=== PATIENT | male | born 1995 | race African-American/Black ===

== ENCOUNTER 2019-09-06 12:39 | Inpatient (IN) ==
[2019-09-06 13:55] LABS: Basophils # 0.1 10*3/uL (0.0-0.2); Basophils % 0.7 % (0.0-0.8); Eosinophils # 0.1 10*3/uL (0.0-0.87); Eosinophils % 0.8 % (0.00-10.9); Hematocrit 27.4 VOL% (42.0-52.0); Immature Granulocytes % 0.5 %; Immature Granulocytes Absolute 0.04 #; Lymphocytes # 1.3 10*3/uL (1.4-4.0); Lymphocytes % 14.8 % (21.2-54.2); Mean Corpuscular HGB Conc 29.2 GM/DL (32-36); Mean Corpuscular Volume 80.1 FL (87-102); Mean Platelet Volume 8.7 FL (9.6-12.0); Monocytes % 7.1 % (1.7-12.7); NRBC # 0.03 10*3/uL; Neutrophils % 76.1 % (38.7-73.9); Platelet Count 265 T/CUMM (130-400); Red Blood Count 3.42 MC/CUMM (3.8-5.5); White Blood Count 8.7 T/CUMM (4-12)
[2019-09-06 14:22] LABS: Albumin 3.3 G/DL (3.4-5.0); Bilirubin,Total 1.3 MG/DL (0.2-1.0); Calcium 9.2 MG/DL (8.5-10.1); Osmolality,Calculated 262.1 MOS/KG (273-304); Total Protein 8.2 G/DL (6.4-8.3)
[2019-09-06] MEDS ORDERED: AZITHROMYCIN INJ 500 MG in SODIUM CHLORIDE 0.9% 250 ML IV STA (14:42)
[2019-09-06] MEDS ORDERED: LORazepam 1 MG TABLET PO STA (14:43)
[2019-09-06] MEDS ORDERED: cefTRIAXone 1,000 MG in SODIUM CHLORIDE 0.9% 100 ML IV STA (14:43)
[2019-09-06] MEDS ORDERED: ONDANSETRON 4 MG/2 ML VIAL ONE (15:36)
[2019-09-06] MEDS ORDERED: ONDANSETRON 4 MG/2 ML VIAL IV ONE (17:36)
[2019-09-06] MEDS: DILTIAZEM 30 MG TABLET PO SCH (20:35)
[2019-09-06] MEDS: ENOXAPARIN 40 MG/0.4 ML SYRINGE SUBCUT SCH (20:36)
[2019-09-06] MEDS: BUMETANIDE 1 MG TABLET PO SCH (20:36)
[2019-09-06] MEDS: POTASSIUM CHLORIDE 20 MEQ TABLET PO SCH (20:36)
[2019-09-06] MEDS ORDERED: ISOSORBIDE DINITRATE 20 MG TABLET PO SCH (21:00)
[2019-09-07] MEDS: DILTIAZEM 30 MG TABLET PO SCH ×2 (01:27→06:10)
[2019-09-07 05:38] LABS: Basophils # 0.1 10*3/uL (0.0-0.2); Basophils % 0.6 % (0.0-0.8); Eosinophils # 0.1 10*3/uL (0.0-0.87); Eosinophils % 1.7 % (0.00-10.9); Hematocrit 26.7 VOL% (42.0-52.0); Hemoglobin 7.9 GM/DL (14.0-18.0); Immature Granulocytes % 0.5 %; Immature Granulocytes Absolute 0.04 #; Lymphocytes # 1.2 10*3/uL (1.4-4.0); Lymphocytes % 14.6 % (21.2-54.2); Mean Corpuscular HGB Conc 29.6 GM/DL (32-36); Mean Corpuscular Volume 78.1 FL (87-102); Mean Platelet Volume 9.4 FL (9.6-12.0); Monocytes % 9.4 % (1.7-12.7); NRBC # 0.02 10*3/uL; Neutrophils % 73.2 % (38.7-73.9); Platelet Count 267 T/CUMM (130-400); Red Blood Count 3.42 MC/CUMM (3.8-5.5); White Blood Count 8.2 T/CUMM (4-12)
[2019-09-07 06:17] LABS: Calcium 9.8 MG/DL (8.5-10.1); Osmolality,Calculated 263.9 MOS/KG (273-304)
[2019-09-07 06:25] LABS: % Iron Saturation 5.2 % (18-50); Ferritin 46.6 ng/ml (26-388)
[2019-09-07] MEDS ORDERED: cefTRIAXone 1,000 MG in SYRINGE 1 EACH IV SCH (09:00)
[2019-09-07] MEDS ORDERED: AZITHROMYCIN INJ 250 MG in SODIUM CHLORIDE 0.9% 250 ML IV SCH (09:00)
[2019-09-07] MEDS: SPIRONOLACTONE 25 MG TABLET PO SCH (09:36)
[2019-09-07] MEDS: BUMETANIDE 1 MG TABLET PO SCH ×2 (09:36→20:40)
[2019-09-07] MEDS: POTASSIUM CHLORIDE 20 MEQ TABLET PO SCH ×2 (09:37→20:40)
[2019-09-07] MEDS: DIGOXIN 0.125 MG TABLET PO SCH (09:37)
[2019-09-07] MEDS: ONDANSETRON 4 MG/2 ML VIAL IV PRN ×2 (11:57→17:45)
[2019-09-07] MEDS: carvediloL 6.25 MG TABLET PO SCH ×2 (13:51→20:40)
[2019-09-07] MEDS: PIPERACILLIN/TAZOBACTAM 3,375 MG in SODIUM CHLORIDE 0.9% 100 ML IV SCH ×2 (13:52→20:39)
[2019-09-07] MEDS ORDERED: MORPHINE 4 MG/1 ML VIAL IV PRN (19:59)
[2019-09-07] MEDS: ENOXAPARIN 40 MG/0.4 ML SYRINGE SUBCUT SCH (20:40)
[2019-09-07] MEDS: FERROUS SULFATE 325 MG TABLET PO SCH (20:40)
[2019-09-08 05:47] LABS: Basophils % 0.6 % (0.0-0.8); Eosinophils # 0.2 10*3/uL (0.0-0.87); Eosinophils % 2.5 % (0.00-10.9); Hematocrit 26.3 VOL% (42.0-52.0); Hemoglobin 7.9 GM/DL (14.0-18.0); Immature Granulocytes % 0.6 %; Immature Granulocytes Absolute 0.04 #; Lymphocytes # 1.1 10*3/uL (1.4-4.0); Lymphocytes % 16.1 % (21.2-54.2); Mean Corpuscular Volume 78.3 FL (87-102); Mean Platelet Volume 9.5 FL (9.6-12.0); Monocytes % 8.1 % (1.7-12.7); NRBC # 0.07 10*3/uL; Neutrophils % 72.1 % (38.7-73.9); Platelet Count 265 T/CUMM (130-400); Red Blood Count 3.36 MC/CUMM (3.8-5.5); White Blood Count 7.1 T/CUMM (4-12)
[2019-09-08] MEDS: PIPERACILLIN/TAZOBACTAM 3,375 MG in SODIUM CHLORIDE 0.9% 100 ML IV SCH ×3 (06:00→21:54)
[2019-09-08 06:09] LABS: Calcium 9.4 MG/DL (8.5-10.1); Osmolality,Calculated 267.9 MOS/KG (273-304)
[2019-09-08] MEDS ORDERED: ALUM/MAG/SIMETH/LIDO VISC 1:1 30 ML BOTTLE PO ONE (07:48)
[2019-09-08] MEDS: BUMETANIDE 1 MG TABLET PO SCH ×2 (08:58→21:54)
[2019-09-08] MEDS: FERROUS SULFATE 325 MG TABLET PO SCH ×2 (08:58→21:54)
[2019-09-08] MEDS: carvediloL 6.25 MG TABLET PO SCH ×2 (08:58→21:54)
[2019-09-08] MEDS: DIGOXIN 0.125 MG TABLET PO SCH (08:58)
[2019-09-08] MEDS: SPIRONOLACTONE 25 MG TABLET PO SCH (08:58)
[2019-09-08] MEDS: POTASSIUM CHLORIDE 20 MEQ TABLET PO SCH ×2 (08:58→21:55)
[2019-09-08] MEDS: metOLazone 2.5 MG TABLET PO SCH (08:58)
[2019-09-08 10:47] LABS: Albumin 3.2 G/DL (3.4-5.0); Bilirubin,Direct 0.69 MG/DL (0.0-0.20); Bilirubin,Indirect 0.8 MG/DL (0.0-1.0); Bilirubin,Total 1.5 MG/DL (0.2-1.0); Total Protein 7.8 G/DL (6.4-8.3)
[2019-09-08] MEDS: PANTOPRAZOLE 40 MG TABLET PO SCH (21:54)
[2019-09-08] MEDS: ENOXAPARIN 40 MG/0.4 ML SYRINGE SUBCUT SCH (21:57)
[2019-09-09 05:21] LABS: Basophils % 0.6 % (0.0-0.8); Eosinophils # 0.2 10*3/uL (0.0-0.87); Eosinophils % 3.2 % (0.00-10.9); Hematocrit 27.2 VOL% (42.0-52.0); Hemoglobin 8.1 GM/DL (14.0-18.0); Immature Granulocytes % 0.8 %; Immature Granulocytes Absolute 0.05 #; Lymphocytes # 1.1 10*3/uL (1.4-4.0); Mean Corpuscular HGB Conc 29.8 GM/DL (32-36); Mean Corpuscular Volume 78.8 FL (87-102); Mean Platelet Volume 9.9 FL (9.6-12.0); Monocytes % 8.1 % (1.7-12.7); NRBC # 0.11 10*3/uL; Neutrophils % 71.3 % (38.7-73.9); Platelet Count 282 T/CUMM (130-400); Red Blood Count 3.45 MC/CUMM (3.8-5.5); Red Cell Distribution Width 18.9 % (9.3-17.3); White Blood Count 6.6 T/CUMM (4-12)
[2019-09-09] MEDS: PIPERACILLIN/TAZOBACTAM 3,375 MG in SODIUM CHLORIDE 0.9% 100 ML IV SCH ×3 (05:46→21:16)
[2019-09-09 06:03] LABS: Calcium 9.3 MG/DL (8.5-10.1); Osmolality,Calculated 265.1 MOS/KG (273-304)
[2019-09-09] MEDS: DIGOXIN 0.125 MG TABLET PO SCH (09:09)
[2019-09-09] MEDS: POTASSIUM CHLORIDE 20 MEQ TABLET PO SCH ×2 (09:09→21:16)
[2019-09-09] MEDS: carvediloL 6.25 MG TABLET PO SCH ×4 (09:09→21:15)
[2019-09-09] MEDS: BUMETANIDE 1 MG TABLET PO SCH (09:09)
[2019-09-09] MEDS: PANTOPRAZOLE 40 MG TABLET PO SCH ×2 (09:09→21:16)
[2019-09-09] MEDS: SPIRONOLACTONE 25 MG TABLET PO SCH (09:10)
[2019-09-09] MEDS ORDERED: POTASSIUM CHLORIDE 20 MEQ/15 ML UDCUP PO ONE (13:36)
[2019-09-09] MEDS: hydrALAZINE 10 MG TABLET PO SCH ×2 (14:47→21:15)
[2019-09-10 04:59] LABS: Calcium 9.1 MG/DL (8.5-10.1); Osmolality,Calculated 271.5 MOS/KG (273-304)
[2019-09-10 05:01] LABS: Basophils % 0.6 % (0.0-0.8); Eosinophils # 0.1 10*3/uL (0.0-0.87); Hemoglobin 8.7 GM/DL (14.0-18.0); Immature Granulocytes % 0.6 %; Immature Granulocytes Absolute 0.04 #; Lymphocytes # 1.1 10*3/uL (1.4-4.0); Lymphocytes % 17.6 % (21.2-54.2); Mean Corpuscular Volume 81.1 FL (87-102); Mean Platelet Volume 9.4 FL (9.6-12.0); NRBC # 0.04 10*3/uL; Neutrophils % 71.2 % (38.7-73.9); Platelet Count 278 T/CUMM (130-400); Red Cell Distribution Width 19.2 % (9.3-17.3); White Blood Count 6.4 T/CUMM (4-12)
[2019-09-10] MEDS: PIPERACILLIN/TAZOBACTAM 3,375 MG in SODIUM CHLORIDE 0.9% 100 ML IV SCH (06:23)
[2019-09-10] MEDS: BUMETANIDE 1 MG TABLET PO SCH ×3 (06:23→21:24)
[2019-09-10 06:27] LABS: Anisocytosis 1+; Platelet Estimate Adequate
[2019-09-10] MEDS ORDERED: POTASSIUM CHLORIDE 20 MEQ/15 ML UDCUP PO ONE (07:45)
[2019-09-10] MEDS: metOLazone 2.5 MG TABLET PO SCH (09:10)
[2019-09-10] MEDS: hydrALAZINE 10 MG TABLET PO SCH ×3 (09:11→21:29)
[2019-09-10] MEDS: SPIRONOLACTONE 25 MG TABLET PO SCH (09:11)
[2019-09-10] MEDS: DIGOXIN 0.125 MG TABLET PO SCH (09:11)
[2019-09-10] MEDS: PANTOPRAZOLE 40 MG TABLET PO SCH ×2 (09:11→21:24)
[2019-09-10] MEDS: POTASSIUM CHLORIDE 20 MEQ TABLET PO SCH ×2 (09:13→21:24)
[2019-09-10] MEDS: carvediloL 6.25 MG TABLET PO SCH ×4 (09:25→21:24)
[2019-09-10] MEDS: CEFUROXIME 250 MG TABLET PO SCH (21:24)
[2019-09-10] MEDS: MILRINONE 20 MG/100 ML PREMIX IV SCH (21:32)
[2019-09-11 05:03] LABS: Basophils % 0.6 % (0.0-0.8); Eosinophils # 0.1 10*3/uL (0.0-0.87); Eosinophils % 1.6 % (0.00-10.9); Hematocrit 27.8 VOL% (42.0-52.0); Hemoglobin 8.2 GM/DL (14.0-18.0); Immature Granulocytes % 0.6 %; Immature Granulocytes Absolute 0.03 #; Lymphocytes # 0.9 10*3/uL (1.4-4.0); Lymphocytes % 17.2 % (21.2-54.2); Mean Corpuscular HGB Conc 29.5 GM/DL (32-36); Mean Corpuscular Volume 79.2 FL (87-102); Mean Platelet Volume 9.4 FL (9.6-12.0); Monocytes % 9.1 % (1.7-12.7); NRBC # 0.03 10*3/uL; Neutrophils % 70.9 % (38.7-73.9); Platelet Count 272 T/CUMM (130-400); Red Blood Count 3.51 MC/CUMM (3.8-5.5); Red Cell Distribution Width 19.4 % (9.3-17.3)
[2019-09-11 05:20] LABS: Calcium 9.1 MG/DL (8.5-10.1); Osmolality,Calculated 266.9 MOS/KG (273-304)
[2019-09-11] MEDS: POTASSIUM CHLORIDE RIDER 20 MEQ in PREMIX 1 EACH IV SCH ×3 (09:39→13:30)
[2019-09-11] MEDS: PANTOPRAZOLE 40 MG TABLET PO SCH ×2 (11:43→21:50)
[2019-09-11] MEDS: CEFUROXIME 250 MG TABLET PO SCH ×2 (11:43→21:49)
[2019-09-11] MEDS: DIGOXIN 0.125 MG TABLET PO SCH (11:43)
[2019-09-11] MEDS: POTASSIUM CHLORIDE 20 MEQ TABLET PO SCH ×2 (11:43→21:50)
[2019-09-11] MEDS: hydrALAZINE 10 MG TABLET PO SCH ×3 (11:43→21:50)
[2019-09-11] MEDS: carvediloL 6.25 MG TABLET PO SCH ×4 (11:43→21:50)
[2019-09-11] MEDS: SPIRONOLACTONE 25 MG TABLET PO SCH (11:43)
[2019-09-11] MEDS: BUMETANIDE 1 MG TABLET PO SCH ×2 (12:36→21:50)
[2019-09-11] MEDS: MILRINONE 20 MG/100 ML PREMIX IV SCH ×2 (19:20→21:51)
[2019-09-11] MEDS: COLESTIPOL 1 GM TABLET PO SCH (19:40)
[2019-09-11] MEDS ORDERED: POTASSIUM CHLORIDE 20 MEQ TABLET PO ONE (21:00)
[2019-09-12 05:23] LABS: Calcium 9.1 MG/DL (8.5-10.1); Osmolality,Calculated 271.7 MOS/KG (273-304)
[2019-09-12] MEDS ORDERED: POTASSIUM CHLORIDE 20 MEQ TABLET PO ONE (07:33)
[2019-09-12] MEDS ORDERED: LACTATED RINGERS 1,000 ML IV SCH (07:35)
[2019-09-12] MEDS ORDERED: MIDAZOLAM 2 MG/2 ML VIAL ONE (08:50)
[2019-09-12] MEDS ORDERED: LIDOCAINE 2% 5 ML VIAL ONE (09:00)
[2019-09-12] MEDS: COLESTIPOL 1 GM TABLET PO SCH (10:43)
[2019-09-12] MEDS: carvediloL 6.25 MG TABLET PO SCH ×3 (13:24→16:43)
[2019-09-12] MEDS: metOLazone 2.5 MG TABLET PO SCH (13:34)
[2019-09-12] MEDS: CEFUROXIME 250 MG TABLET PO SCH (13:34)
[2019-09-12] MEDS: SPIRONOLACTONE 25 MG TABLET PO SCH (13:34)
[2019-09-12] MEDS: POTASSIUM CHLORIDE 20 MEQ TABLET PO SCH (13:34)
[2019-09-12] MEDS: hydrALAZINE 10 MG TABLET PO SCH ×2 (13:34→16:43)
[2019-09-12] MEDS: DIGOXIN 0.125 MG TABLET PO SCH (13:34)
[2019-09-12] MEDS: BUMETANIDE 1 MG TABLET PO SCH (13:34)
[2019-09-12] MEDS: PANTOPRAZOLE 40 MG TABLET PO SCH (13:34)
[2019-09-12] MEDS: METOCLOPRAMIDE 10 MG/10 ML UDCUP PO SCH ×2 (13:35→16:43)
[2019-09-12 15:56] VITALS: BP 116/60
== END 2019-09-12 18:35 | disposition home or self-care (01) | DRG 194 ==
LOC: N.EDINP 12:39 → N.ED 12:39 → N.TELEN 17:23 → SUATTDRO 09-08 12:30
PROVIDERS: ADMIT Internal Medicine; ATTEND Internal Medicine